=== PATIENT | female | born 1955 | race Caucasian/White ===

== ENCOUNTER 2017-10-08 19:07 | Observation (INO) | payer SELFPAY ==
[2017-10-08 21:10] LABS: CKMB 0.9 ng/mL (0-6.6); Troponin I Less than 0.010 ng/mL (< 0.028)
[2017-10-08] MEDS ORDERED: Enoxaparin Sodium 60 MG/0.6 ML SYRINGE ONE (21:14)
[2017-10-09 00:39] LABS: Troponin I Less than 0.010 ng/mL (< 0.028)
[2017-10-09 03:29] LABS: Troponin I Less than 0.010 ng/mL (< 0.028)
--- NOTE | 2017-10-09 06:09 | HP ---
PRIMARY CARE PHYSICIAN: Dr. Pacheco CHIEF COMPLAINT: Not feeling well. HISTORY OF PRESENT ILLNESS: Ms. Christianson is a pleasant 62-year-old female that has a history of hypert ension as well as anxiety. She was in her usual state of health until approximately 2 days prior to admission. She says that she was helping her sister load up some jewelry that they were going to stefani l. When she says that she was feeling extremely hot and started feeling extremely bad. She says that she cannot really explain it very well other than she felt drained. She says that she also started having some feeling of indigestion and some pain in her upper abdomen. She says she started drinking a lot of water and then got to feeling bloated and was having a lot of belching. She also felt ligh theaded and felt like her heart was pounding. She says she took her blood pressure and noticed that it was elevated and she says once she did this, she started to get anxious and then her blood pressur e started to go even higher. Due to these symptoms, she came to the emergency room for evaluation. She was seen initially in [place] where they adria lab work and found that her troponin was sligh tly elevated at 0.165 and as a result she was transferred here for further evaluation. The patient d enies having any sumit chest pain per se, but did have some pressure. She denies feeling short of br eath. She denies any PND or orthopnea; however, she says she does sleep on pillows, but this is due to her reflux disease. She denies any lower extremity edema and otherwise no other complaints. REVIEW OF SYSTEMS: All systems were reviewed and are negative except for that mentioned in the histo ry of present illness. PAST MEDICAL HISTORY: Significant for hypertension, anxiety, and gastroesophageal reflux disease. PAST SURGICAL HISTORY: Negative. ALLERGIES: CODEINE, TRAMADOL and AMBIEN. SOCIAL HISTORY: She is single. She is a former smoker. She quit 3 years ago. Prior to that, she u sed to smoke about a pack a day. Denies any alcohol use. FAMILY HISTORY: Significant for coronary artery disease and cerebrovascular disease as well as cance r in her mother, brother had heart valve disease, sister, and mother had thyroid cancer. MEDICATIONS: Clonazepam, lisinopril and Zantac. PHYSICAL EXAMINATION: GENERAL: She is alert and oriented. She appears to be in no acute distress. VITAL SIGNS: Blood pressure was approximately 130/80, heart rates ranging in the 50s to even the upp er 40s, respiratory rate of 16, and she is afebrile. HEENT: Pupils are equal, round, and reactive. Extraocular muscles are intact. Her sclerae are anic teric. Throat no erythema, no exudates. NECK: No adenopathy, no bruits. LUNGS: Clear to auscultation. There was no wheezing, no rales. CARDIOVASCULAR: She had a normal S1, S2. I did not appreciate an S3 or S4, heart sounds are slightl y distant. There were no murmurs, clicks, no rubs. ABDOMEN: Soft, it is nontender, nondistended. Positive for bowel sounds. There is no rebound or gu arding, no organomegaly. EXTREMITIES: There is no clubbing, cyanosis, no edema. NEUROLOGICALLY: Muscle strength is 5/5 in both her upper and lower extremities. It is nonfocal. SKIN/INTEGUMENT: There were no skin changes. No rash. LABORATORY: Reportedly, she had a troponin which was slightly elevated at 0.1. Her white blood cell count was 6.6, hemoglobin 12.2, hematocrit is 37.6, platelet count is 282. Sodium 138, potassium 3. 5, chloride is 102, CO2 is 23, BUN of 8, creatinine 0.86, glucose is 84. She had an EKG which was sinus rhythm, the rate was [address] wave changes and chest x-ray was si gnificant for the lungs appeared hyperexpanded, her heart size was normal. There was no pulmonary va scular infiltrates. ASSESSMENT AND PLAN: 1. This is a 62-year-old female that presents to the emergency room with vague symptoms of feeling d rained and weak, as well as having some indigestion. She had an elevated troponin initially. Theref ore, there was some concern for possible acute coronary syndrome. For this reason, she has been plac ed in observation. She has been ruled out, and we will get a nuclear stress test. Since she had jose alfredo e bradycardia here in the ER we will try to get an exercise test instead of a pharmacological one; ho wever, if she is not able to exercise this can always be converted, but primarily to see if her heart rate will respond appropriately to exertion. 2. Hypertension. We will monitor her blood pressure and restart lisinopril as indicated. Otherwise , further recommendations will be based on her stress test.
[2017-10-09] MEDS ORDERED: Ondansetron ODT 4 MG TAB PO PRN (06:53)
[2017-10-09] MEDS ORDERED: Mag-Al 1200 mg/1200 mg/30 ML UDCUP PO PRN ×2 (06:53→09:05)
[2017-10-09] MEDS ORDERED: Acetaminophen 325 MG TAB PO PRN (06:53)
[2017-10-09] MEDS ORDERED: hydrALAZINE 20 MG/ML VIAL SLOW IVP PRN (06:53)
[2017-10-09 08:21] LABS: Cardiac Risk 4.8 (Less than 4.5)
[2017-10-09] MEDS ORDERED: Famotidine 20 MG TAB PO SCH (09:00)
[2017-10-09] MEDS ORDERED: Aspirin 325 MG TAB PO SCH (09:00)
[2017-10-09] MEDS ORDERED: clonazePAM 0.5 MG TAB PO PRN (09:04)
[2017-10-09] MEDS ORDERED: clonazePAM 0.5 MG TAB PO SCH (09:15)
--- NOTE | 2017-10-09 12:19 | NM ---
CARDIAC SPECT: CLINICAL HISTORY: 62-year-old female with chest pain and hypertension. TECHNIQUE: A myocardial perfusion scan was performed using the single isotope one day protocol with technetium-9 9m sestamibi. 9 mCi were injected intravenously for the rest exam followed by 27 mCi for the stress e xam. Exercise stress was monitored and interpreted by Troy Krishnamurthy NP. FINDINGS: Homogeneous tracer distribution is seen in the myocardial segments on stress and rest images without fixed or reversible defects. GATED SPECT LVEF: 78%. WALL MOTION EXAM: Normal. IMPRESSION: Normal myocardial perfusion scan. POS: C
[2017-10-09 13:12] VITALS: BP 165/67; TEMP 97.3
--- NOTE | 2017-10-10 14:24 | DIS ---
DATE OF DISCHARGE: 10/09/2017 DISCHARGE DISPOSITION: Home. FOLLOWUP: With primary care physician, Dr. Pacheco, in 1 week. ALLERGIES: The patient is allergic to CODEINE, TRAMADOL, and AMBIEN. DISCHARGE MEDICATIONS: Propranolol 10 mg three times daily, Protonix 40 mg daily, clonazepam was res umed. The patient was seen and examined on the day of discharge. Denies any new complaints, no chest pain, shortness of breath, palpitations. BRIEF HOSPITAL COURSE: The patient is a 62-year-old white female with hypertension and anxiety, who presented to the hospital with epigastric discomfort along with generalized weakness and malaise. Sh shefali was found to have elevated blood pressure along with troponin of 0.165 in the emergency room. Plea se refer to the history and physical for further details. The patient was admitted to the hospital w ith suspected acute coronary syndrome. However, 3 repeat troponins remained negative. Her blood pre ssure also remained stable. Patient mentioned that her blood pressure was in 180s at home. She usua lly gets anxious when she checks her blood pressure even at home. She will benefit from a nonselecti ve beta armando. For this reason, propranolol was started. The patient was advised to monitor blood pressure on a daily basis. She also had epigastric discomfort along with heartburn that responded v geovani well to oral Protonix. She has been sent home on a prescription for Protonix as well. Due to el evated troponins and consent for acute coronary syndrome, a stress test was performed that was negati ve for reversible ischemia. Ejection fraction was 78% without any wall motion abnormality. Patient appears stable for discharge. Plan of care was discussed with the patient in detail. She stated und erstanding. FINAL DIAGNOSES: 1. Generalized weakness with epigastric discomfort. 2. Elevated troponins, probably secondary to hypertensive urgency at home. 3. Anxiety with possible panic attack. 4. Hypertension. 5. Chronic kidney disease, stage 2. Plan of care was discussed with the patient in detail. She stated understanding.
--- NOTE | 2017-10-11 11:05 | STRESS ---
Acquisition Time: 2017-10-09 10:32:58 Total Exercise Time: 00:06:20 Test Indications: CHEST PAIN Medications: Protocol: JOSHUA Max HR: 134 BPM 85% of Pred: 156 BPM Max BP: 152/070 mmHG Max Work Load: 7.6 METS RESTING ECG: SINUS BRADYCARDIA AT 59 BPM SYMPTOMS: DYSPNEA ON EXERTION NORMAL BP RESPONSE ECTOPY: NONE ECG STRESS: 0.5-1.[address] DEPRESSION INTERPRETATION: INDETERMINATE ECG/AWAIT NUCLEAR IMAGES FOR DEFINITIVE DIAGNOSIS Confirmed by LISA CONRAD ([id number]) on 10/11/2017 11:04:42 AM Referred By: MD Rogelio BROOKS Confirmed By:LISA CONRAD
== END 2017-10-09 17:55 | disposition home or self-care (01) ==
LOC: ERS 19:07 → ERHOLD 23:42 → 2SW 10-09 06:37
PROVIDERS: ADMIT Internal Medicine; ATTEND Internal Medicine
DX: R53.1 Weakness (principal); R10.13 Epigastric pain; R79.89 Other specified abnormal findings of blood chemistry; F41.9 Anxiety disorder, unspecified; I12.9 Hypertensive chronic kidney disease with stage 1 through stage 4 chronic kidney disease, or unspecified chronic kidney disease; N18.2 Chronic kidney disease, stage 2 (mild); K21.9 Gastro-esophageal reflux disease without esophagitis; Z88.5 Allergy status to narcotic agent; Z87.891 Personal history of nicotine dependence; Z79.899 Other long term (current) drug therapy
CPT/HCPCS: 36415; 78452; 80061; 93005; 93017; 94760; 96372; A9500; G0378; J1650